=== PATIENT | male | born 2000 | race Caucasian/White ===

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

== ENCOUNTER 2020-11-13 02:00 | Emergency (ER) | payer BC ==
[~2020-11-13] VITALS: Ht 172.3 cm; Wt 68.9 kg
[~2020-11-13 02:00] MED LIST changes: +LORA-405 PO
[2020-11-13 02:16] VITALS: BP 135/116
--- NOTE | 2020-11-13 02:23 | ED General ---
General Chief Complaint: Bite-Animal/Human/Insect Stated Complaint: INSECT BITE Source of Information: Patient Exam Limitations: No Limitations History of Present Illness Date Seen by Provider: November 13, 2020 Time Seen by Provider: 02:15 Initial Comments Patient is a 20-year-old male who presents with an insect/spider bite on the back of his neck. Incident occurred 1 hour prior to arrival. It awoke patient from sleep. He was able to kill the spider was a black spider. Reports feeling anxious and chest pain which is since resolved. He has small puncture wound with raised bump on the back of his neck that is minimally tender. No medications or therapies taken prior to ED arrival. Timing/Duration: 1 Hour Severity: Mild Modifying Factors: improves with Other Associated Systoms: Other Allergies and Home Medications Allergies Coded Allergies: No Known Drug Allergies (Unverified , 02/11/19) Home Medications Ciprofloxacin HCl/Dexameth 7.5 Ml Soln, 7.5 ML OT BID Prescribed by: JOSE CASON on 02/11/192046 Lorazepam 1 Mg Tablet, 1 MG PO Q8H PRN for ANXIETY Prescribed by: AMY HILL on 12/16/19 1040 Ondansetron 4 Mg Tab.rapdis, 4 MG PO Q6H PRN for NAUSEA/VOMITING Prescribed by: RICARDO WAYNE on 08/30/192003 Patient Home Medication List Home Medication List Reviewed: Yes Review of Systems Review of Systems Constitutional: see HPI EENTM: see HPI Respiratory: see HPI Cardiovascular: see HPI Gastrointestinal: see HPI Genitourinary: see HPI Musculoskeletal: see HPI Skin: see HPI Psychiatric/Neurological: See HPI Hematologic/Lymphatic: See HPI Immunological/Allergic: see HPI All Other Systems Reviewed Negative Unless Noted: Yes Past Clmpfaq-Hwnsyw-Ppuzme Hx Past Med/Social Hx: Reviewed Nursing Past Med/Soc Hx Patient Social History Alcohol Use: Denies Use Smoking Status: Current Everyday Smoker Type Used: Cigarettes 2nd Hand Smoke Exposure: No Recent Hopitalizations: No Seasonal Allergies Seasonal Allergies: No Past Medical History Surgeries: No Respiratory: No Cardiac: No Neurological: No Genitourinary: No Gastrointestinal: No Musculoskeletal: No Endocrine: No HEENT: No Cancer: No Psychosocial: Yes ADD/ADHD Integumentary: No Blood Disorders: No Physical Exam Vital Signs Capillary Refill : Height, Weight, BMI Height: 5'9.00" Weight: 148lbs. oz. 67.366946lm; 21.00 BMI Method:Actual General Appearance: Anxious HEENT: PERRL/EOMI, Normal ENT Inspection, Pharynx Normal Neck: Full Range of Motion, Normal Inspection Respiratory: Lungs Clear, Normal Breath Sounds Cardiovascular: Regular Rate, Rhythm Skin: Other (Small red raised macule with central puncture wound consistent with insect bite. Minimal tenderness.) Progress/Results/Core Measures Suspected Sepsis SIRS Temperature: Pulse: Respiratory Rate: Blood Pressure / Mean: Results/Orders My Orders Orders - AMY HILL DO Diphenhydramine Tablet (Benadryl Tablet) (11/13/20 02:30) Vital Signs/I&O Capillary Refill : Departure Communication (Admissions) Physical exam consistent with spider bite. No systemic symptoms. Benadryl given. PCP follow-up as needed. Impression Primary Impression: Spider bite wound Disposition: HOME, SELF-CARE Condition: Stable Departure-Patient Inst. Decision time for Depature: 02:22 Referrals: LINDSEY GARRISON MD (PCP/Family) Primary Care Physician Patient Instructions: Spider Bites Add. Discharge Instructions: Please take Benadryl as needed. Follow-up with your PCP for reevaluation as needed. All discharge instructions reviewed with patient and/or family. Voiced understanding. Work/School Note: Work Release Form Date Seen in the Emergency Department: November 13, 2020 Return to Work: November 14, 2020 AMY HILL DO November 13, 2020 02:23
[2020-11-13] MEDS ORDERED: diphenhydrAMINE 25 MG TAB (BENADRYL) PO ONE (02:30)
== END 2020-11-13 02:28 | disposition home or self-care (01) ==
LOC: EDUNIT# 02:00 → ER FS 02:02
DX: T63.311A Toxic effect of venom of black widow spider, accidental (unintentional), initial encounter (principal); F17.210 Nicotine dependence, cigarettes, uncomplicated
CPT/HCPCS: 99283

== ENCOUNTER 2020-12-22 20:17 | Emergency (ER) | payer BC ==
[~2020-12-22] VITALS: Ht 179 cm; Wt 79.0 kg
--- NOTE | 2020-12-22 20:25 | ED General ---
General Stated Complaint: RT LEG NUMBNESS,SHAKING History of Present Illness Date Seen by Provider: Dec 22, 2020 Time Seen by Provider: 20:25 Initial Comments 20-year-old male comes in with shaking and "right leg numbness" patient states he wants medication for seizures. I asked patient if he has been diagnosed with seizures in the past and he says no. However he reports that his mom wanted to come out because she thinks he might be having seizures. Patient knows when he is having this "seizure-like activity" he has no loss of bowel or bladder, no tongue biting and is fully aware of what is happening when they are coming. The activity seems the more stress related. Patient does not have any postictal phase. Patient reports that he feels like his right leg is numb from this ac tivity, that feels harder for him to walk however he is able to walk. Allergies and Home Medications Allergies Coded Allergies: No Known Drug Allergies (Unverified , 02/11/19) Home Medications Ciprofloxacin HCl/Dexameth 7.5 Ml Soln, 7.5 ML OT BID Prescribed by: JOSE CASON on 02/11/192046 Lorazepam 1 Mg Tablet, 1 MG PO Q8H PRN for ANXIETY Prescribed by: AMY HILL on 12/16/19 1040 Ondansetron 4 Mg Tab.rapdis, 4 MG PO Q6H PRN for NAUSEA/VOMITING Prescribed by: RICARDO WAYNE on 08/30/192003 Patient Home Medication List Home Medication List Reviewed: Yes Review of Systems Review of Systems Constitutional: see HPI EENTM: no symptoms reported Respiratory: no symptoms reported Cardiovascular: no symptoms reported Gastrointestinal: no symptoms reported Genitourinary: no symptoms reported Musculoskeletal: no symptoms reported Skin: no symptoms reported Psychiatric/Neurological: See HPI Past Qflhpsy-Rwdjir-Lrhzne Hx Patient Social History Type Used: Cigarettes 2nd Hand Smoke Exposure: No Recent Hopitalizations: No Seasonal Allergies Seasonal Allergies: No Past Medical History Surgeries: No Respiratory: No Cardiac: No Neurological: No Genitourinary: No Gastrointestinal: No Musculoskeletal: No Endocrine: No HEENT: No Cancer: No Psychosocial: Yes ADD/ADHD Integumentary: No Blood Disorders: No Physical Exam Vital Signs Vital Signs - First Documented 12/22/20 20:17 Temp 36.5 Pulse 98 Resp 18 B/P (MAP) 148/81 (103) Pulse Ox 98 O2 Delivery Room Air Capillary Refill : Height, Weight, BMI Height: 5'9.00" Weight: 148lbs. oz. 67.141075nv; 23.00 BMI Method:Actual General Appearance: No Apparent Distress, Anxious HEENT: PERRL/EOMI, Normal ENT Inspection Neck: Non Tender, Supple Respiratory: Lungs Clear, Normal Breath Sounds Cardiovascular: Regular Rate, Rhythm Gastrointestinal: Non Tender, Soft Extremity: Normal Inspection Neurologic/Psychiatric: Alert, Oriented x3, Sensory Deficit (Reported in right leg), Other (Normal gait) Skin: Normal Color, Warm/Dry Progress/Results/Core Measures Suspected Sepsis SIRS Temperature: Pulse: Respiratory Rate: Laboratory Tests 12/22/20 20:40: White Blood Count 9.7 Blood Pressure / Mean: Laboratory Tests 12/22/20 20:40: Creatinine 0.96, Platelet Count 248, Total Bilirubin 0.4 Results/Orders Lab Results Laboratory Tests Test 12/22/20 20:40 12/22/20 21:30 Range/Units White Blood Count 9.7 4.3-11.0 10^3/uL Red Blood Count 5.00 4.35-5.85 10^6/uL Hemoglobin 14.7 13.3-17.7 G/DL Hematocrit 42 40-54 % Mean Corpuscular Volume 83 80-99 FL Mean Corpuscular Hemoglobin 29 25-34 PG Mean Corpuscular Hemoglobin Concent 35 32-36 G/DL Red Cell Distribution Width 11.7 10.0-14.5 % Platelet Count 248 130-400 10^3/uL Mean Platelet Volume 9.4 7.4-10.4 FL Immature Granulocyte % (Auto) 0 % Neutrophils (%) (Auto) 64 42-75 % Lymphocytes (%) (Auto) 25 12-44 % Monocytes (%) (Auto) 7 0-12 % Eosinophils (%) (Auto) 3 0-10 % Basophils (%) (Auto) 0 0-10 % Neutrophils # (Auto) 6.2 1.8-7.8 X 10^3 Lymphocytes # (Auto) 2.4 1.0-4.0 X 10^3 Monocytes # (Auto) 0.7 0.0-1.0 X 10^3 Eosinophils # (Auto) 0.3 0.0-0.3 10^3/uL Basophils # (Auto) 0.0 0.0-0.1 10^3/uL Immature Granulocyte # (Auto) 0.0 0.0-0.1 10^3/uL Sodium Level 139 135-145 MMOL/L Potassium Level 4.0 3.6-5.0 MMOL/L Chloride Level 102 98-107 MMOL/L Carbon Dioxide Level 23 21-32 MMOL/L Anion Gap 14 5-14 MMOL/L Blood Urea Nitrogen 15 7-18 MG/DL Creatinine 0.96 0.60-1.30 MG/DL Estimat Glomerular Filtration Rate > 60 BUN/Creatinine Ratio 16 Glucose Level 89 70-105 MG/DL Calcium Level 9.5 8.5-10.1 MG/DL Corrected Calcium 8.5-10.1 MG/DL Total Bilirubin 0.4 0.1-1.0 MG/DL Aspartate Amino Transf (AST/SGOT) 22 5-34 U/L Alanine Aminotransferase (ALT/SGPT) 25 0-55 U/L Alkaline Phosphatase 86 40-136 U/L Total Protein 7.6 6.4-8.2 GM/DL Albumin 4.9 H 3.2-4.5 GM/DL Urine Color DARK YELLOW Urine Clarity CLEAR Urine pH 6.0 5-9 Urine Specific [place] >=1.030 1.016-1.022 Urine Protein NEGATIVE NEGATIVE Urine Glucose (UA) NEGATIVE NEGATIVE Urine Ketones NEGATIVE NEGATIVE Urine Nitrite NEGATIVE NEGATIVE Urine Bilirubin NEGATIVE NEGATIVE Urine Urobilinogen 0.2 < = 1.0 MG/DL Urine Leukocyte Esterase NEGATIVE NEGATIVE Urine RBC (Auto) NEGATIVE NEGATIVE Urine RBC NONE /HPF Urine WBC 5-10 H /HPF Urine Squamous Epithelial Cells 2-5 /HPF Urine Crystals NONE /LPF Urine Bacteria TRACE /HPF Urine Casts NONE /LPF Urine Mucus LARGE H /LPF Urine Culture Indicated NO Urine Opiates Screen NEGATIVE NEGATIVE Urine Oxycodone Screen NEGATIVE NEGATIVE Urine Methadone Screen NEGATIVE NEGATIVE Urine Propoxyphene Screen NEGATIVE NEGATIVE Urine Barbiturates Screen NEGATIVE NEGATIVE Ur Tricyclic Antidepressants Screen NEGATIVE NEGATIVE Urine Phencyclidine Screen NEGATIVE NEGATIVE Urine Amphetamines Screen NEGATIVE NEGATIVE Urine Methamphetamines Screen NEGATIVE NEGATIVE Urine Benzodiazepines Screen NEGATIVE NEGATIVE Urine Cocaine Screen NEGATIVE NEGATIVE Urine Cannabinoids Screen NEGATIVE NEGATIVE My Orders Orders - CASON,JOSE L DO Cbc With Automated Diff (12/22/20 20:32) Comprehensive Metabolic Panel (12/22/20 20:32) Drug Screen Stat (Urine) (12/22/20 20:32) Ua Culture If Indicated (12/22/20 20:32) Ct Head Wo-R/O Stroke (12/22/20 20:32) Vital Signs/I&O 12/22/20 12/22/20 20:17 21:45 Temp 36.5 36.5 Pulse 98 98 Resp 18 18 B/P (MAP) 148/81 (103) 148/81 (103) Pulse Ox 98 98 O2 Delivery Room Air Capillary Refill : Progress Note : Progress Note Patient symptoms much more consistent with pseudoseizure. Patient reports weakness of his right leg however he had no difficulty ambulating the hallway. Patient with no acute findings and discharged home. I recommend he follow-up with his primary care provider for further outpatient evaluation for potential seizure-like activity. Diagnostic Imaging Diagonstic Imaging: CT Plain Films/CT/US/NM/MRI: head Comments CT HEAD WO-R/O STROKE PROCEDURE: CT head w/o, r/o stroke. TECHNIQUE: Auto Exposure Controls were utilized during the CT exam to meet ALARA standards for radiation dose reduction. INDICATION: Seizure. FINDINGS: Noncontrast CT scanning of the head demonstrates no mass effect, midline shift, hemorrhage or extra-axial fluid collection. Sadler-white matter differentiation is normal. The ventricles, cortical sulci and basilar cisterns appear normal. No atrophy is present. Pituitary fossa appears unremarkable. The osseous structures are normal. IMPRESSION: Normal CT scan of the head. Reviewed: Reviewed by Me, Reviewed/Discussed Departure Impression Primary Impression: Seizure-like activity Disposition: 01 HOME, SELF-CARE Condition: Stable Departure-Patient Inst. Referrals: LINDSEY GARRISON MD (PCP/Family) Primary Care Physician Add. Discharge Instructions: Follow-up with your primary care provider next week to have a neurology consult and further evaluation for possible seizure activity JOSE CASON DO Dec 22, 2020 20:25
[2020-12-22 20:46] LABS: BASOPHILS % (AUTO) 0 % (0-10); EOSINOPHILS # (AUTO) 0.3 10^3/uL (0.0-0.3); EOSINOPHILS % (AUTO) 3 % (0-10); HEMATOCRIT 42 % (40-54); HEMOGLOBIN 14.7 G/DL (13.3-17.7); LYMPHOCYTES # (AUTO) 2.4 X 10^3 (1.0-4.0); LYMPHOCYTES % (AUTO) 25 % (12-44); MEAN CORPUSCULAR HEMOGLOBIN 29 PG (25-34); MEAN CORPUSCULAR HGB CONC 35 G/DL (32-36); MEAN CORPUSCULAR VOLUME 83 FL (80-99); MEAN PLATELET VOLUME 9.4 FL (7.4-10.4); MONOCYTES # (AUTO) 0.7 X 10^3 (0.0-1.0); MONOCYTES % (AUTO) 7 % (0-12); NEUTROPHILS # (AUTO) 6.2 X 10^3 (1.8-7.8); NEUTROPHILS % (AUTO) 64 % (42-75); PLATELET COUNT 248 10^3/uL (130-400); WHITE BLOOD COUNT 9.7 10^3/uL (4.3-11.0)
--- NOTE | 2020-12-22 20:51 | Diagnostic Imaging Report ---
PROCEDURE: CT head w/o, r/o stroke. TECHNIQUE: Auto Exposure Controls were utilized during the CT exam to meet ALARA standards for radiation dose reduction. INDICATION: Seizure. FINDINGS: Noncontrast CT scanning of the head demonstrates no mass effect, midline shift, hemorrhage or extra-axial fluid collection. Sadler-white matter differentiation is normal. The ventricles, cortical sulci and basilar cisterns appear normal. No atrophy is present. Pituitary fossa appears unremarkable. The osseous structures are normal. IMPRESSION: Normal CT scan of the head. Dictated by: Dictated on workstation # [id number]
[2020-12-22 21:07] LABS: ALANINE AMINOTRANSFERASE 25 U/L (0-55); ALBUMIN 4.9 GM/DL (3.2-4.5); ALKALINE PHOSPHATASE 86 U/L (40-136); BILIRUBIN,TOTAL 0.4 MG/DL (0.1-1.0); BUN/CREATININE RATIO 16; CALCIUM 9.5 MG/DL (8.5-10.1); CARBON DIOXIDE 23 MMOL/L (21-32); CHLORIDE 102 MMOL/L (98-107); CREATININE SERUM 0.96 MG/DL (0.60-1.30); GFR ESTIMATED > 60; GLUCOSE 89 MG/DL (70-105); SODIUM 139 MMOL/L (135-145); TOTAL PROTEIN 7.6 GM/DL (6.4-8.2)
[2020-12-22 21:41] LABS: COLOR,URINE DARK YELLOW
[2020-12-22 21:42] LABS: BACTERIA,URINE TRACE /HPF; BILIRUBIN,URINE NEGATIVE (NEGATIVE); CLARITY,URINE CLEAR; GLUCOSE, URINE (UA) NEGATIVE (NEGATIVE); KETONES,URINE NEGATIVE (NEGATIVE); LEUKOCYTE ESTERASE ,URINE NEGATIVE (NEGATIVE); NITRITE,URINE NEGATIVE (NEGATIVE); PROTEIN,URINE NEGATIVE (NEGATIVE)
[2020-12-22 21:45] VITALS: BP 148/81
[2020-12-22 21:47] LABS: AMPHETAMINE SCREEN, URINE NEGATIVE (NEGATIVE); BARBITURATE SCREEN URINE NEGATIVE (NEGATIVE); BENZODIAZEPINES SCREEN URINE NEGATIVE (NEGATIVE); CANNABINOID SCREEN, URINE NEGATIVE (NEGATIVE); COCAINE SCREEN URINE NEGATIVE (NEGATIVE); METHADONE STAT NEGATIVE (NEGATIVE); METHAMPHETAMINE SCREEN URINE S NEGATIVE (NEGATIVE); OPIATE SCREEN URINE NEGATIVE (NEGATIVE); OXYCODONE STAT NEGATIVE (NEGATIVE); PROPOXYPHENE STAT NEGATIVE (NEGATIVE); TRICYCLIC ANTIDEPRESSANTS SCRE NEGATIVE (NEGATIVE)
== END 2020-12-22 21:49 | disposition home or self-care (01) ==
LOC: EDUNIT# 20:17 → ER FS 20:19
DX: R29.818 Other symptoms and signs involving the nervous system (principal)
CPT/HCPCS: 36415; 70450; 80053; 80306; 81000; 85025

== ENCOUNTER 2021-05-23 20:59 | Emergency (ER) | payer BC ==
--- NOTE | 2021-05-23 21:22 | ED Cardiac General ---
History of Present Illness General Chief Complaint: Chest Pain Stated Complaint: VOMITTING,BACK PAIN,CP Source: patient Exam Limitations: no limitations History of Present Illness Date Seen by Provider: May 23, 2021 Time Seen by Provider: 21:09 Initial Comments 21yoM with no significant PMH coming in due to multiple issues, most notably nausea, chest pain, cough, and fever. Fever was up to 102 yesterday. Symptoms have been ongoing for about a week with a cough. Has had intermittent chest pain in the center of his chest radiating across it to his back for several days. Gets chest pain like this off and on. Says it is sharp in nature. Nothing seems to make it better or worse. Did take Tylenol and ibuprofen for his fever yesterday which helped. He is unsure if he has ever had Covid and is not vaccinated. He is otherwise denying any other acute complaints. Allergies and Home Medications Allergies Coded Allergies: No Known Drug Allergies (Unverified , 02/11/19) Patient Home Medication List Home Medication List Reviewed: Yes Ciprofloxacin HCl/Dexameth (Ciprodex Otic Suspension) 7.5 Ml Soln, 7.5 ML OT BID Prescribed by: JOSE CASON on 02/11/192046 Lorazepam (Ativan) 1 Mg Tablet, 1 MG PO Q8H PRN for ANXIETY Prescribed by: AMY HILL on 12/16/19 1040 Ondansetron (Ondansetron Odt) 4 Mg Tab.rapdis, 4 MG PO Q6H PRN for NAUSEA/VOMITING Prescribed by: RICARDO WAYNE on 08/30/192003 Review of Systems Review of Systems Constitutional: No chills; fever EENTM: No Blurred Vision Respiratory: Cough; Denies Shortness of Air Cardiovascular: Chest Pain Gastrointestinal: Denies Abdominal Pain; Diarrhea, Nausea; Denies Vomiting Genitourinary: Denies Burning Musculoskeletal: no symptoms reported Skin: no symptoms reported Psychiatric/Neurological: No Symptoms Reported Endocrine: No Symptoms Reported Hematologic/Lymphatic: No Symptoms Reported All Other Systems Reviewed Negative Unless Noted: Yes Past Usqafci-Wjelyd-Fyzito Hx Patient Social History Tobacco Use?: Yes Alcohol Use?: Yes Seasonal Allergies Seasonal Allergies: No Past Medical History Surgeries: No Respiratory: No Cardiac: No Neurological: No Genitourinary: No Gastrointestinal: No Musculoskeletal: No Endocrine: No HEENT: No Cancer: No Psychosocial: Yes ADD/ADHD Integumentary: No Blood Disorders: No Physical Exam Vital Signs Vital Signs - First Documented 05/23/21 21:03 Temp 36.3 Pulse 80 Resp 16 B/P (MAP) 148/86 (106) Pulse Ox 99 O2 Delivery Room Air Capillary Refill : Height, Weight, BMI Height: 5'9.00" Weight: 148lbs. oz. 67.904635ez; 24.00 BMI Method:Actual General Appearance: No Apparent Distress, WD/WN HEENT: PERRL/EOMI, Normal ENT Inspection, Pharynx Normal Neck: Full Range of Motion, Normal Inspection, Non Tender, Supple Respiratory: Chest Non Tender, Lungs Clear, Normal Breath Sounds, No Accessory Muscle Use, No Respiratory Distress Cardiovascular: Regular Rate, Rhythm, No Edema, Normal Peripheral Pulses Gastrointestinal: Normal Bowel Sounds, Non Tender, Soft; No Distended, No Guarding Extremity: Normal Capillary Refill, Normal Inspection, Normal Range of Motion, Non Tender, No Calf Tenderness, No Pedal Edema Neurologic/Psychiatric: Alert, No Motor/Sensory Deficits, Normal Mood/Affect Skin: Normal Color, Warm/Dry Lymphatic: No Adenopathy Progress/Results/Core Measures Results/Orders Lab Results Laboratory Tests Test 05/23/21 21:13 05/23/21 21:25 Range/Units White Blood Count 9.0 4.3-11.0 10^3/uL Red Blood Count 5.68 H 4.30-5.52 10^6/uL Hemoglobin 16.5 13.3-17.7 g/dL Hematocrit 47 40-54 % Mean Corpuscular Volume 82 80-99 fL Mean Corpuscular Hemoglobin 29 25-34 pg Mean Corpuscular Hemoglobin Concent 35 32-36 g/dL Red Cell Distribution Width 12.1 10.0-14.5 % Platelet Count 308 130-400 10^3/uL Mean Platelet Volume 9.4 9.0-12.2 fL Immature Granulocyte % (Auto) 1 % Neutrophils (%) (Auto) 54 42-75 % Lymphocytes (%) (Auto) 33 12-44 % Monocytes (%) (Auto) 8 0-12 % Eosinophils (%) (Auto) 4 0-10 % Basophils (%) (Auto) 0 0-10 % Neutrophils # (Auto) 4.9 1.8-7.8 X 10^3 Lymphocytes # (Auto) 3.0 1.0-4.0 X 10^3 Monocytes # (Auto) 0.7 0.0-1.0 X 10^3 Eosinophils # (Auto) 0.4 H 0.0-0.3 10^3/uL Basophils # (Auto) 0.0 0.0-0.1 10^3/uL Immature Granulocyte # (Auto) 0.1 0.0-0.1 10^3/uL Sodium Level 140 135-145 MMOL/L Potassium Level 4.1 3.6-5.0 MMOL/L Chloride Level 105 98-107 MMOL/L Carbon Dioxide Level 23 21-32 MMOL/L Anion Gap 12 5-14 MMOL/L Blood Urea Nitrogen 15 7-18 MG/DL Creatinine 0.76 0.60-1.30 MG/DL Estimat Glomerular Filtration Rate 129 BUN/Creatinine Ratio 20 Glucose Level 106 H 70-105 MG/DL Calcium Level 9.4 8.5-10.1 MG/DL Corrected Calcium 8.5-10.1 MG/DL Total Bilirubin 0.2 0.1-1.0 MG/DL Aspartate Amino Transf (AST/SGOT) 20 5-34 U/L Alanine Aminotransferase (ALT/SGPT) 25 0-55 U/L Alkaline Phosphatase 104 40-136 U/L Troponin I < 0.30 <0.30 NG/ML Total Protein 7.8 6.4-8.2 GM/DL Albumin 4.8 H 3.2-4.5 GM/DL Lipase 21 8-78 U/L Influenza Type A Antigen NEGATIVE NEGATIVE Influenza Type B Antigen NEGATIVE NEGATIVE My Orders Orders - JUDY GILLILAND MD Cbc With Automated Diff (05/23/21 21:16) Comprehensive Metabolic Panel (05/23/21 21:16) Lipase (05/23/21 21:16) Troponin I Fs (05/23/21 21:16) Influenza A & B Antigens (05/23/21 21:16) Chest 1 View Ap/Pa Only (05/23/21 21:16) Coronavirus Sars-Cov-2 So 2018 (05/23/21 21:16) Ekg Tracing (05/23/21 21:16) Vital Signs/I&O 05/23/21 21:03 Temp 36.3 Pulse 80 Resp 16 B/P (MAP) 148/86 (106) Pulse Ox 99 O2 Delivery Room Air Progress Progress Note : Progress Note 21-year-old male with above history coming in due to fever, cough, chest pain. ABCs were intact and vitals were stable on presentation. Physical exam with no focal abnormalities and he is well-appearing. EKG without ischemic changes or signs of pericarditis. An IV was placed and basic labs were obtained including troponin to assess for signs of myocarditis. Covid test and flu test sent. The Covid test will come back likely tomorrow. Chest x-ray also ordered. Electrolytes normal, creatinine normal, flu test negative, lipase normal, LFTs normal. Chest x-ray my interpretation without any obvious pneumonia or pneumothorax. Overall he is well-appearing and I believe he is stable for discharge. He was sent home with strict return precautions. The only thing pending at this time is a send out Covid test. Initial ECG Impression Date: May 23, 2021 Initial ECG Impression Time: 21:02 Initial ECG Rate: 76 Initial ECG Rhythm: Normal Sinus Comment Narrow QRS, normal axis, no significant ST changes or T wave abnormalities, benign early repolarization pattern Diagnostic Imaging Diagonstic Imaging: Xray Plain Films/CT/US/NM/MRI: chest Comments X-ray chest ordered and interpreted by me showing no obvious pneumonia, pneumothorax, or pleural effusion. Normal cardiac silhouette. Departure Impression Primary Impression: Flu-like symptoms Additional Impression: Person under investigation for COVID-19 Disposition: 01 HOME, SELF-CARE Condition: Stable Departure-Patient Inst. Decision time for Depature: 22:07 Referrals: LINDSEY GARRISON MD (PCP/Family) Primary Care Physician Patient Instructions: Viral Syndrome (DC) Add. Discharge Instructions: You are seen in the emergency department for pain mostly around your chest through to your back with some fever and cough. Your flu test was negative and your labs are reassuring. It does not appear like you are having any type of heart attack. Your chest x-ray looks good and does not look like you have pneumonia. The only test that is still pending is your Covid test which should come back within the next 24 or so hours. Take ibuprofen or Tylenol for pain and fever. Just be sure to drink plenty of fluids. Follow-up with your primary care doctor within the next several days especially if you are not feeling better. Work/School Note: Work Release Form Date Seen in the Emergency Department: May 23, 2021 Return to Work: May 25, 2021 Restrictions: No Restrictions JUDY GILLILAND MD May 23, 2021 21:22
[2021-05-23 21:32] LABS: BASOPHILS % (AUTO) 0 % (0-10); EOSINOPHILS # (AUTO) 0.4 10^3/uL (0.0-0.3); EOSINOPHILS % (AUTO) 4 % (0-10); HEMATOCRIT 47 % (40-54); HEMOGLOBIN 16.5 g/dL (13.3-17.7); LYMPHOCYTES % (AUTO) 33 % (12-44); MEAN CORPUSCULAR HEMOGLOBIN 29 pg (25-34); MEAN CORPUSCULAR HGB CONC 35 g/dL (32-36); MEAN CORPUSCULAR VOLUME 82 fL (80-99); MEAN PLATELET VOLUME 9.4 fL (9.0-12.2); MONOCYTES # (AUTO) 0.7 X 10^3 (0.0-1.0); MONOCYTES % (AUTO) 8 % (0-12); NEUTROPHILS # (AUTO) 4.9 X 10^3 (1.8-7.8); NEUTROPHILS % (AUTO) 54 % (42-75); PLATELET COUNT 308 10^3/uL (130-400)
[2021-05-23 21:47] LABS: ALANINE AMINOTRANSFERASE 25 U/L (0-55); ALKALINE PHOSPHATASE 104 U/L (40-136); BILIRUBIN,TOTAL 0.2 MG/DL (0.1-1.0); BUN/CREATININE RATIO 20; CALCIUM 9.4 MG/DL (8.5-10.1); CARBON DIOXIDE 23 MMOL/L (21-32); CHLORIDE 105 MMOL/L (98-107); CREATININE SERUM 0.76 MG/DL (0.60-1.30); GFR ESTIMATED 129; GLUCOSE 106 MG/DL (70-105); POTASSIUM 4.1 MMOL/L (3.6-5.0); SODIUM 140 MMOL/L (135-145)
[2021-05-23 21:48] LABS: ALBUMIN 4.8 GM/DL (3.2-4.5); LIPASE 21 U/L (8-78); TOTAL PROTEIN 7.8 GM/DL (6.4-8.2)
--- NOTE | 2021-05-23 21:50 | Diagnostic Imaging Report ---
CHEST 1 VIEW AP/PA ONLY Indication: Chest pain. Comparison: 12/16/2019 Findings: No focal airspace disease in the visualized lungs. Please note that the posterior lower lobes are poorly evaluated by portable radiography. No pleural effusion or pneumothorax. Normal cardiomediastinal silhouette. Impression: 1. No acute cardiopulmonary process by portable radiography. Dictated by: Dictated on workstation # [id number]
[2021-05-23 22:10] VITALS: BP 148/86
== END 2021-05-23 22:10 | disposition home or self-care (01) ==
LOC: EDUNIT# 20:59 → ER FS 21:00
DX: J11.1 Influenza due to unidentified influenza virus with other respiratory manifestations (principal); Z20.822 Contact with and (suspected) exposure to COVID-19; Z72.0 Tobacco use
CPT/HCPCS: 36415; 71045; 80053; 83690; 84484; 85025; 87635; 87636; 87804; 93005

== ENCOUNTER 2021-11-13 20:40 | Emergency (ER) | payer BC ==
[~2021-11-13] VITALS: Ht 180.3 cm; Wt 76.7 kg
--- NOTE | 2021-11-13 22:12 | ED EENT ---
History of Present Illness General Chief Complaint: Oral/Throat Problems Stated Complaint: THROAT PAIN,UNABLE TO EAT/SWALLOW History of Present Illness Date Seen by Provider: November 13, 2021 Time Seen by Provider: 20:50 Initial Comments 21-year-old male is here with complaints of sore throat and difficulty swallowing for the past 3 weeks. Patient has not seen a doctor or taken any antibiotic for it. Denies fever, shortness of breath, cough, chest pain, abdominal pain, diarrhea and vomiting, headache, postnasal drip. No known sick contacts. Allergies and Home Medications Allergies Coded Allergies: No Known Drug Allergies (Unverified , 02/11/19) Patient Home Medication List Home Medication List Reviewed: Yes Ciprofloxacin HCl/Dexameth (Ciprodex Otic Suspension) 7.5 Ml Soln, 7.5 ML OT BID Prescribed by: JOSE CASON on 02/11/192046 Lorazepam (Ativan) 1 Mg Tablet, 1 MG PO Q8H PRN for ANXIETY Prescribed by: AMY HILL on 12/16/19 1040 Ondansetron (Ondansetron Odt) 4 Mg Tab.rapdis, 4 MG PO Q6H PRN for NAUSEA/VOMITING Prescribed by: RICARDO WAYNE on 08/30/192003 Review of Systems Review of Systems Constitutional: no symptoms reported Eyes: No Symptoms Reported Ears: No Symptoms Reported Nose: no symptoms reported Mouth: no symptoms reported Throat: pain, hoarse, painful swallowing Respiratory: no symptoms reported Cardiovascular: no symptoms reported Gastrointestinal: no symptoms reported Musculoskeletal: no symptoms reported Skin: no symptoms reported Neurological: No Symptoms Reported Hematologic/Lymphatic: No Symptoms Reported Immunological/Allergic: no symptoms reported Past Monslwe-Glxrkt-Rpggoe Hx Immunizations Up To Date First/Initial COVID19 Vaccinat: NA Seasonal Allergies Seasonal Allergies: No Past Medical History Surgeries: No Respiratory: No Cardiac: No Neurological: No Genitourinary: No Gastrointestinal: No Musculoskeletal: No Endocrine: No HEENT: No Cancer: No Psychosocial: Yes ADD/ADHD Integumentary: No Blood Disorders: No Physical Exam Height, Weight, BMI Height: 5'9.00" Weight: 148lbs. oz. 67.879258fe; 24.00 BMI Method:Actual General Appearance: WD/WN, no apparent distress Eyes: bilateral eye PERRL Ears: bilateral ear TM normal Nose: normal inspection Mouth/Throat: tonsillar exudate, tonsillar swelling Neck: non-tender, full range of motion, supple Cardiovascular: regular rate, rhythm Respiratory: lungs clear Gastrointestinal: non tender, soft Neurologic/Psychiatric: alert, oriented x 3 Skin: normal color Progress/Results/Core Measures Results/Orders Lab Results Laboratory Tests Test 11/13/21 20:55 Range/Units Influenza Type A Antigen NEGATIVE NEGATIVE Influenza Type B Antigen NEGATIVE NEGATIVE Group A Streptococcus Screen NEGATIVE NEGATIVE My Orders Orders - ISMAEL POLLARD MD Rapid Strep A Screen (11/13/21 20:58) Influenza A & B Antigens (11/13/21 20:58) Covid 19 Inhouse Test (11/13/21 20:58) Influenza A And B By Pcr (11/13/21 20:58) Isolation Central Supply Req (11/13/21 20:58) Progress Progress Note : Progress Note 1. EXUDATIVE TONSILLITIS: - Rapid strep/ Rapid Flu test: negative - COVID test pending. Quarantine measures until result comes back - Advised adequate hydration - Augmentin for 7 days with first tab stat in ER - NSAID prn pain - F/u with PCP in 3 to 5 days -The patient was seen in the ED, and treated appropriately to presentation at a specific point in time. Patient is informed that there is a possibility that disease and illness can evolve and change in acuity rapidly or slowly after patient is discharged from the ER. Precautionary advice given to the patient for immediate return to ER if symptoms worsen or do not resolve, and to seek emergency care sooner rather than later. Pt also advised on the importance of PCP follow up and compliance with management and follow up plan with PCP and/or specialist, as this is part of the management plan. Pt verbally expressed understanding. Departure Impression Primary Impression: Exudative tonsillitis Disposition: 01 HOME, SELF-CARE Condition: Stable Departure-Patient Inst. Referrals: LINDSEY GARRISON MD (PCP/Family) Primary Care Physician Patient Instructions: Sore Throat, Adult (DC), Sore Throat, Adult ED Add. Discharge Instructions: - COVID test pending. Quarantine measures until result comes back - Advised adequate hydration - Augmentin for 7 days - NSAID prn pain - F/u with PCP in 3 to 5 days -The patient was seen in the ED, and treated appropriately to presentation at a specific point in time. Patient is informed that there is a possibility that disease and illness can evolve and change in acuity rapidly or slowly after patient is discharged from the ER. Precautionary advice given to the patient for immediate return to ER if symptoms worsen or do not resolve, and to seek emergency care sooner rather than later. Pt also advised on the importance of PCP follow up and compliance with management and follow up plan with PCP and/or specialist, as this is part of the management plan. Pt verbally expressed understanding. All discharge instructions reviewed with patient and/or family. Voiced understanding. Scripts Amoxicillin/Potassium Clav (Augmentin 500-125 Tablet) 500 Mg-125 Mg Tablet 1 EACH PO TID for 7 Days, #21 TAB Prov: ISMAEL POLLARD MD 11/13/21 Work/School Note: Work Release Form Date Seen in the Emergency Department: November 13, 2021 Return to Work: November 17, 2021 Restrictions: Need Release from Doctor ISMAEL POLLARD MD November 13, 2021 22:12
[2021-11-13] MEDS ORDERED: AMOX-355 PO (22:14)
[2021-11-13] MEDS ORDERED: AUGMENTIN 875 MG TAB (AMOXICILLIN/CLAVULANATE) PO STA (22:15)
[2021-11-13 22:23] VITALS: BP 135/86
== END 2021-11-13 22:23 | disposition home or self-care (01) ==
LOC: EDUNIT# 20:40 → ER FS 20:41
DX: J03.90 Acute tonsillitis, unspecified (principal); Z20.822 Contact with and (suspected) exposure to COVID-19
CPT/HCPCS: 87430; 87636; 87804; 99283

== ENCOUNTER 2022-02-03 18:53 | Emergency (ER) | payer BC ==
[~2022-02-03] VITALS: Ht 182.8 cm; Wt 85.2 kg
[~2022-02-03 18:53] MED LIST changes: +AMOX-355 PO
--- NOTE | 2022-02-03 19:22 | ED Chest Pain ---
General Chief Complaint: Chest Wall Stated Complaint: COUGHING BLOOD; RT CHEST PAIN Source: patient History of Present Illness Date Seen by Provider: Feb 03, 2022 Time Seen by Provider: 19:22 Initial Comments 21-year-old male presenting with complaints of pain to the right upper chest wall. He has been having this for several weeks and was seen last week at the urgent care for the same complaint. He states they told him it was a pulled muscle but he did not feel that was right since the pain has been coming and going. He was at work today and they told him he needed to be seen and get it checked out so he came to the emergency department. He denies having cough, congestion, fever, chills, chest wall contusion, fall, trauma, injury. He has improvement when he takes ibuprofen but has not taken it consistently Timing/Duration: other (Present off and on for several weeks) Severity/Quality: moderate, sharp Location: other (Right upper chest pectoral muscle area) Radiation: no radiation Activities at Onset: none Prior CP/Workup: non-cardiac ASA po CUPOLA CHARGER INSULATION: No NTG SL CUPOLA CHARGER INSULATION: No Associated Symptoms: No abdominal pain, No back pain, No diaphoresis, No dizziness, No edema, No fatigue, No fever/chills, No headache, No heartburn, No nausea/vomiting, No rash, No shortness of breath, No swelling/lump in chest, No syncope, No weakness Allergies and Home Medications Allergies Coded Allergies: No Known Drug Allergies (Unverified , 02/11/19) Patient Home Medication List Home Medication List Reviewed: Yes Cariprazine Hydrochloride (Vraylar) 3 Mg Capsule, 3 MG PO HS, (Reported) Entered as Reported by: MOOK ROBLES on 02/03/222031 Last Action: New Order Prednisone (Prednisone) 20 Mg Tab, 40 MG PO DAILY Prescribed by: RICARDO WAYNE on 02/03/222016 Discontinued Medications Amoxicillin/Potassium Clav (Augmentin 500-125 Tablet) 500 Mg-125 Mg Tablet, 1 EACH PO TID Discontinued Reason: Referral/FU Appt-Addtl Prescribed by: ISMAEL POLLARD MD on 11/13/212213 Last Action: Discontinued Ciprofloxacin HCl/Dexameth (Ciprodex Otic Suspension) 7.5 Ml Soln, 7.5 ML OT BID Discontinued Reason: Referral/FU Appt-Addtl Prescribed by: JOSE CASON on 02/11/192046 Last Action: Discontinued Lorazepam (Ativan) 1 Mg Tablet, 1 MG PO Q8H PRN for ANXIETY Discontinued Reason: Referral/FU Appt-Addtl Prescribed by: AMY HILL on 12/16/191039 Last Action: Discontinued Ondansetron (Ondansetron Odt) 4 Mg Tab.rapdis, 4 MG PO Q6H PRN for NAUSEA/VOMITING Discontinued Reason: Referral/FU Appt-Addtl Prescribed by: RICARDO WAYNE on 08/30/192003 Last Action: Discontinued Review of Systems Review of Systems Constitutional: No chills, No fever EENTM: No Symptoms Reported Respiratory: Denies Cough, Denies Shortness of Air, Denies SOA With Exertion, Denies SOA at Rest, Denies Stridor, Denies Wheezing Cardiovascular: See HPI Gastrointestinal: No Symptoms Reported Genitourinary: No Symptoms Reported Musculoskeletal: no symptoms reported Skin: No change in color, No rash Psychiatric/Neurological: Denies Anxiety, Denies Numbness, Denies Paresthesia Endocrine: No Symptoms Reported Past Sqazcoj-Tsjrak-Aaioul Hx Patient Social History Tobacco Use?: Yes Tobacco type used: Cigarettes (Trying to quit smoking) Immunizations Up To Date First/Initial COVID19 Vaccinat: NA Second COVID19 Vaccination Vicente: NA Third COVID19 Vaccination Date: NA Seasonal Allergies Seasonal Allergies: No Past Medical History Surgery/Hospitalization HX: ADHD, schizophrenia Surgeries: No Respiratory: No Cardiac: No Neurological: No Genitourinary: No Gastrointestinal: No Musculoskeletal: No Endocrine: No HEENT: No Cancer: No Psychosocial: Yes ADD/ADHD Integumentary: No Blood Disorders: No Physical Exam Vital Signs Vital Signs - First Documented 02/03/22 19:03 Temp 36.8 Pulse 84 Resp 18 B/P (MAP) 145/78 (100) Pulse Ox 98 O2 Delivery Room Air Capillary Refill : Height, Weight, BMI Height: 5'9.00" Weight: 148lbs. oz. 67.828992ea; 23.00 BMI Method:Actual General Appearance: No Apparent Distress, WD/WN HEENT: PERRL/EOMI, Pharynx Normal Neck: Full Range of Motion, Normal Inspection, Non Tender, Supple Respiratory: No Chest Non Tender (Tender to palpation on the right upper chest wall pectoral muscle. There is no crepitus or step-offs.); Lungs Clear, Normal Breath Sounds, No Accessory Muscle Use, No Respiratory Distress Cardiovascular: Regular Rate, Rhythm, No Murmur, Normal Peripheral Pulses Gastrointestinal: Normal Bowel Sounds, No Pulsatile Mass, Non Tender, Soft Rectal: Deferred Extremity: Normal Capillary Refill, Normal Inspection, No Calf Tenderness, No Pedal Edema Neurologic/Psychiatric: Alert, Oriented x3 Skin: Normal Color, Warm/Dry Images 1 - Tender to palpation. No crepitus or step-off Progress/Results/Core Measures Results/Orders My Orders Orders - RICARDO WAYNE MD Ekg Tracing (02/03/22 19:19) Chest Pa/Lat (2 View) (02/03/22 19:19) Vital Signs/I&O 02/03/22 02/03/22 19:03 20:20 Temp 36.8 36.8 Pulse 84 84 Resp 18 18 B/P (MAP) 145/78 (100) 145/78 Pulse Ox 98 98 O2 Delivery Room Air Room Air Progress Progress Note #1: Progress Note Obtain electrocardiogram and chest x-ray to evaluate for acute abnormality causing his pain. Patient was refusing any shots or needles to perform any blood work. Progress Note #2: Progress Note Electrocardiogram does not show any acute significant normality. He has no ischemic changes. Chest x-ray was clear without acute process. Counseled patient on treatment of chest wall pain and inflammation. Will do a short burst of steroid since patient does not want to do ibuprofen multiple times a day. Given a note to be off work for today so that he had a chance to try and rest and let the medicine work. Counseled on follow-up and return precautions if he was not having improvement so he could check back with primary care Initial ECG Impression Date: Feb 03, 2022 Initial ECG Impression Time: 19:12 Initial ECG Rate: 75 Initial ECG Rhythm: Normal Sinus Initial ECG Comparisson: No Previous ECG Available Comment Sinus rhythm with a heart rate of 75 bpm. VT interval [address] elevation. QT interval 350 ms with a QTc interval 379 ms. No prior tracing available for comparison Diagnostic Imaging Diagonstic Imaging: Xray Plain Films/CT/US/NM/MRI: chest Comments [facility] [place], [place] NAME: JUDY DONG [facility] REC#: [id number] PT STATUS: DEP ER : 2000 PHYSICIAN: RICARDO WAYNE MD ADMIT DATE: 02/03/22/ER FS Signed Date of Exam:02/03/22 CHEST PA/LAT (2 VIEW) EXAMINATION: Chest 2 view. HISTORY: Chest wall pain. COMPARISON: 05/23/2021. FINDINGS: The lungs are clear without edema or pneumonia. No pleural effusion or pneumothorax. Heart size is normal. IMPRESSION: Clear lungs. Dictated by: Dictated on workstation # [id number] Dict: 02/03/221958 Trans: 02/03/222026 [facility] [id number] Interpreted by: LINDSEY FALLON MD Electronically signed by: LINDSEY FALLON MD 02/03/222026 Reviewed: Reviewed by Me Departure Impression Primary Impression: Costochondritis Additional Impression: Right-sided chest wall pain Disposition: 01 HOME, SELF-CARE Condition: Stable Departure-Patient Inst. Decision time for Depature: 20:15 Referrals: LINDSEY GARRISON MD (PCP) Primary Care Physician Patient Instructions: Costochondritis (DC) Add. Discharge Instructions: Continue to work on quitting smoking. The x-ray and electrocardiogram as well as exam and vital signs all looked good. This seems to be an inflammatory process involving her chest wall. Continue to quit smoking will help. Taking the steroid for the next few days to help with inflammation should also help. Check back through the primary care clinic if having continued symptoms or not improving. All discharge instructions reviewed with patient and/or family. Voiced understanding. Scripts Prednisone (Prednisone) 20 Mg Tab 40 MG PO DAILY for chest wall pain for 4 Days, #8 TAB 0 Refills Prov: RICARDO WAYNE MD 02/03/22 Work/School Note: Work Release Form Date Seen in the Emergency Department: Feb 03, 2022 Return to Work: Feb 05, 2022 Restrictions: No Restrictions RICARDO WAYNE MD Feb 03, 2022 19:22
--- NOTE | 2022-02-03 20:01 | Diagnostic Imaging Report ---
EXAMINATION: Chest 2 view. HISTORY: Chest wall pain. COMPARISON: 05/23/2021. FINDINGS: The lungs are clear without edema or pneumonia. No pleural effusion or pneumothorax. Heart size is normal. IMPRESSION: Clear lungs. Dictated by: Dictated on workstation # [id number]
[2022-02-03] MEDS ORDERED: PRD20T PO (20:17)
[2022-02-03 20:20] VITALS: BP 145/78
[2022-02-03] MEDS ORDERED: CARI3CAP PO (20:32)
== END 2022-02-03 20:20 | disposition home or self-care (01) ==
LOC: EDUNIT# 18:53 → ER FS 18:55
DX: M94.0 Chondrocostal junction syndrome [Tietze] (principal); F17.210 Nicotine dependence, cigarettes, uncomplicated; Z28.310 Unvaccinated for COVID-19
CPT/HCPCS: 71046; 93005